=== PATIENT | male | born 1995 | race Caucasian/White ===

== ENCOUNTER 2018-07-08 20:51 | Emergency (ER) | payer OTHER ==
[~2018-07-08] VITALS: Ht 190.5 cm; Wt 111.1 kg
[2018-07-08] MEDS ORDERED: NORCO 5-325 TA1 EACH PO (21:35)
[2018-07-08] MEDS ORDERED: IBUPROFEN 600600 M1 PO (21:35)
[2018-07-08] MEDS ORDERED: SENNA-DOCUSATE1 EAC1 PO (21:35)
[2018-07-08 22:07] VITALS: BP 116/75
== END 2018-07-08 22:08 | disposition home or self-care (01) ==
LOC: ER 20:51
DX: S42.021A Displaced fracture of shaft of right clavicle, initial encounter for closed fracture (principal); V89.2XXA Person injured in unspecified motor-vehicle accident, traffic, initial encounter; Y92.89 Other specified places as the place of occurrence of the external cause; Y93.89 Activity, other specified; Y99.8 Other external cause status